=== PATIENT | male | born 1995 | race Caucasian/White ===

== ENCOUNTER 2017-09-17 10:11 | Day surgery (SDC) | payer OTHER ==
--- NOTE | 2017-09-03 10:12 | RADIOLOGY REPORT (SQ) ---
EXAM DESCRIPTION: CHEST PA/LATERAL COMPLETED DATE/TIME: 09/03/2017 9:25 am REASON FOR STUDY: PRE-OP COMPARISON: None. NUMBER OF VIEWS: Two view. TECHNIQUE: Frontal and lateral radiographic views of the chest acquired. LIMITATIONS: None. FINDINGS: LUNGS AND PLEURA: No opacities, masses or pneumothorax. No pleural effusion. MEDIASTINUM AND HILAR STRUCTURES: No masses or contour abnormalities. HEART AND VASCULATURE: Heart normal size. No evidence for failure. BONY STRUCTURES: No acute findings. HARDWARE: None. OTHER: No other significant finding. IMPRESSION: NO SIGNIFICANT RADIOGRAPHIC FINDING IN THE CHEST. TECHNICAL DOCUMENTATION: JOB ID: [id number] [employer]- All Rights Reserved Reading location - IP/workstation name: [email or web address]
[2017-09-03 10:17] LABS: ABSOLUTE EOSINOPHILS # (AUTO) 0.6 10^3/uL (0.0-0.6); ABSOLUTE LYMPHOCYTES (AUTO) 3.4 10^3/uL (0.5-4.7); ABSOLUTE MONOCYTES (AUTO) 0.8 10^3/uL (0.1-1.4); ABSOLUTE NEUT (AUTO) 6.4 10^3/uL (1.7-8.2); BASOPHILS % (AUTO) 0.3 % (0-2); EOSINOPHILS % (AUTO) 5.6 % (0-6); HEMATOCRIT 47.5 % (37.9-51.0); HEMOGLOBIN 16.5 g/dL (13.5-17.0); LYMPHOCYTES % (AUTO) 30.1 % (13-45); MEAN CORPUSCULAR HEMOGLOBIN 30.8 pg (27.0-33.4); MEAN CORPUSCULAR HGB CONC 34.7 g/dL (32.0-36.0); MEAN CORPUSCULAR VOLUME 89 fl (80-97); MONOCYTES % (AUTO) 7.1 % (3-13); PLATELET COUNT 252 10^3/uL (150-450); RED BLOOD COUNT 5.34 10^6/uL (4.35-5.55); RED CELL DISTRIBUTION WIDTH 13.1 % (11.5-14.0); SEGMENTED NEUTROPHILS % (AUTO) 56.9 % (42-78); TOTAL CELLS COUNTED % (AUTO) 100 %; WHITE BLOOD COUNT 11.3 10^3/uL (4.0-10.5)
[2017-09-03 10:19] LABS: AMORPHOUS SEDIMENT,URINE 1+ /HPF; APPEARANCE,URINE CLOUDY; BILIRUBIN,URINE NEGATIVE (NEGATIVE); COLOR,URINE YELLOW; GLUCOSE, URINE NEGATIVE (NEGATIVE); KETONES,URINE NEGATIVE (NEGATIVE); LEUKOCYTE ESTERASE,URINE NEGATIVE (NEGATIVE); NITRITE,URINE NEGATIVE (NEGATIVE); PROTEIN,URINE NEGATIVE (NEGATIVE); URINE SPECIFIC GRAVITY 1.019; UROBILINOGEN,URINE NEGATIVE mg/dL (<2.0)
[2017-09-03 10:36] LABS: ANION GAP 11 (5-19); BLOOD UREA NITROGEN 14 mg/dL (7-20); CALCIUM 9.7 mg/dL (8.4-10.2); CARBON DIOXIDE 30 mmol/L (22-30); CHLORIDE 103 mmol/L (98-107); GLUCOSE 89 mg/dL (75-110); POTASSIUM 4.4 mmol/L (3.6-5.0); SODIUM 144.3 mmol/L (137-145)
--- NOTE | 2017-09-03 12:36 | EKG REPORT ---
SEVERITY:- ABNORMAL ECG - SINUS RHYTHM PROBABLE LEFT VENTRICULAR HYPERTROPHY : Confirmed by: Luis Enrique Corbin MD 03-Sep-2017 12:34:51
[~2017-09-17 10:11] MED LIST: ACETAMINOPHEN 100 ML IV ONE; BUPIVACAINE HCL 0.5 % INJ/PF 30 ML SDV ONE; CEFAZOLIN SODIUM 2 GM in DEXTROSE 5%-WATER 100 ML IV PRN; DEXAMETHASONE SOD PHOSPHATE INJ 4 MG/1 ML VIAL ONE; FENTANYL CITRATE INJ/PF 100 MCG/2 ML AMPUL ONE; LACTATED RINGERS 1000 ML IV PRN; LIDOCAINE 0.5% INJ-PF (5 MG/ML) 50 ML SDV SUBCUT PRN; LIDOCAINE 2% INJ-PF (20 MG/ML) 10 ML AMPUL ONE; MIDAZOLAM 2 MG/2 ML INJ ONE; ONDANSETRON HCL INJ/PF 4 MG/2 ML SDV ONE; PROPOFOL INJ 200 MG/20 ML VIAL IV ONE; SUCCINYLCHOLINE CHLORIDE INJ 200 MG/10 ML VIAL ONE
[2017-09-17] MEDS ORDERED: MORPHINE SULFATE 10 MG/ML INJ IV PRN ×2 (10:37→13:38)
[2017-09-17] MEDS ORDERED: PROMETHAZINE HCL INJ 25 MG/1 ML VIAL IV PRN ×2 (10:37)
[2017-09-17] MEDS ORDERED: FENTANYL CITRATE INJ/PF 100 MCG/2 ML AMPUL IV PRN ×3 (10:37)
[2017-09-17] MEDS ORDERED: MEPERIDINE HCL/PF INJ 25 MG/1 ML DISP.SYRIN IV PRN (10:37)
[2017-09-17] MEDS ORDERED: ONDANSETRON HCL INJ/PF 4 MG/2 ML SDV IV PRN ×2 (10:37→13:38)
[2017-09-17] MEDS ORDERED: DIPHENHYDRAMINE HCL 50 MG/ML VIAL IV PRN (10:37)
[2017-09-17] MEDS ORDERED: FAMOTIDINE INJ/PF 20 MG/2 ML SDV IV ONE (10:39)
[2017-09-17] MEDS ORDERED: ALBUTEROL SULFATE 0.083% NEB 2.5 MG/3 ML AMPUL NEB ONE (10:42)
--- NOTE | 2017-09-17 13:36 | Operative Report ---
Operative Report DATE OF SURGERY: 09/17/17 PREOPERATIVE DIAGNOSIS: Right wrist partial scapholunate ligament tear POSTOPERATIVE DIAGNOSIS: Right wrist complete scapholunate ligament tear. OPERATION: Right wrist surgical arthroscopy with debridement. Right wrist scapholunate ligament repair SURGEON: KWAME SHIPLEY ANESTHESIA: GA COMPLICATIONS: None ESTIMATED BLOOD LOSS: Minimal PROCEDURE: Indication for above procedure: 22-year-old male who sustained injury to his right wrist. Patient had attempted conservative management including activity modification injections and splinting without resolution of his symptoms. At that point decision was made to proceed with operative intervention. MRI revealed partial ligament tear. Thus decision was made to proceed with arthroscopy with possible open repair pending intraoperative findings. Risks and benefits were explained to the patient patient verbalized understanding consented for the procedure. Procedure In Detail: Patient was seen and evaluated in the preoperative holding area. The RIGHT upper extremity was initialized and marked. Patient received 2g of Ancef IV for bacterial prophylaxis. Patient was taken back to the operative room where transferred to the operative table and placed under general anesthesia. Once they were adequately anesthetized a nonsterile tourniquet was placed on the upper extremity. A surgical team debriefing was performed ensuring all instrumentation was available, the surgical procedure was discussed with possible concerns reviewed. The upper extremity was prepped with chlorhexidine and alcohol and draped in a sterile fashion. A timeout was done identifying correct patient, procedure and extremity everyone in attendance agree with this and verbalized no concerns. [facility] with 15 pounds of traction. The extremity was exsanguinated the tourniquet was inflated to 250 mmHg. A 3-4 portal was established and arthroscope introduced into the radiocarpal joint. Introduction of the radiocarpal joint demonstrate no evidence of radiocarpal degenerative changes however there was evidence of significant scapholunate ligament disruption. There was a positive drive-through sign noted at the scapholunate interval. A 4-5 portal was established along with a R -U portal. Inspection of the TFCC demonstrated no evidence of TFCC disruption normal trampoline effect with probing of the TFCC. There was some fraying dorsally which was debrided with a full-radius resector but no full-thickness tear. A midcarpal radial and midcarpal ulnar portal was then established and arthroscope introduced. Introduction within the midcarpal joint demonstrated drive-through sign at the scapholunate interval with full-thickness scapholunate ligament tear. There was no evidence of disruption at the lunotriquetral interval. This area was debrided but given the full-thickness nature decision was made to proceed with open operative intervention. Longitudinal skin incision was made just ulnar to Kyle's tubercle. Blunt dissection was performed and the superficial radial nerve was identified and retracted. I then elevated the fourth and third compartments exposing the capsule of the wrist. A T-shaped capsulotomy was then made. Inspection of the scapholunate interval demonstrated complete disruption of the scapholunate ligament from the scaphoid insertion. I then debrided the interval between the scaphoid and lunate and under C-arm fluoroscopy and direct visualization reduce the scapholunate ligament interval. A small stab incision was made just distal to the radial styloid, blunt dissection was performed and the drill guide was placed to protect the surrounding soft tissues and superficial radial nerve and 2x 0.045 K wires were placed along the scapholunate interval. A third 0.045 K wire was placed along the scaphoid capitate interval. The pins were then cut below the skin. I then turned my attention to repair the scapholunate ligament. A Arthrex micro anchor was placed within the scaphoid. Remanent of the scapholunate ligament and a portion of the DIC was secured to the scaphoid with a Trevor-Danilo suture. The capsule was then closed with interrupted remaining FiberWire suture. The wound was copiously irrigated with normal saline. Any peripheral veins were coagulated with bipolar cautery. Subcutaneous tissues were closed with interrupted 3-0 Vicryl suture. Skin was closed with 4-0 nylon suture. 20 cc of 0.5% Marcaine without epinephrine was injected for postoperative pain control. Patient was placed in a well-padded dorsal blocking splint with the wrist in neutral position. Sponge counts, instrument counts, needle counts counts were correct. Patient was then awoken from anesthesia. Transferred from the operating room table to the operating room stretcher. There was no intraoperative complications patient tolerated procedure well stable to PACU. Postoperative plan: Patient will follow-up the office in 2 weeks at which point we will obtain radiographs and patient will be placed in a short arm cast. Plan will be continuing short arm cast and K wires for 8 weeks.
[2017-09-17] MEDS ORDERED: OXYCODONE-ACETAMINOPHEN 5-325 MG TABLET PO PRN (13:38)
--- NOTE | 2017-09-17 13:38 | Discharge Summary ---
Discharge Summary (SDC) - Discharge Final Diagnosis: Scapholunate ligament tear Date of Surgery: 09/17/17 Discharge Date: 09/17/17 Condition: Good Treatment or Instructions: Schedule Follow Up w/ Dr. Toro Muro @ [facility] to be seen in 10-14 days or as scheduled [place]: [place]: [place]: Ice and elevate Keep splint clean/dry/intact. If your fingers become numb please unwrap the Parveen wrap but leave the splint in place, if the sensation does not return within 30 minutes please return to the emergency department. May begin finger range of motion attempting to make full fist. Please use ibuprofen (Motrin or Advil) 600-800 mg every 8 hours as needed for pain or fever DO NOT TAKE w/ TORADOL may use once TORADOL complete. You may also use acetaminophen (Tylenol) 1000 mg every 4-6 hours as needed for pain or fever. Please be aware that many medications contain acetaminophen, do not exceed a total of 1000 mg of acetaminophen every 6 hours. If ibuprofen and acetaminophen are not sufficient for your pain you may take the Percocet/Ancram. Please be aware that the Percocet/Ancram does contain Tylenol. Stool softener of choice when on pain medication. Prescriptions: Ketorolac Tromethamine [Toradol 10 mg Tablet] 10 mg PO Q8HP PRN #10 tablet PRN Reason: Oxycodone HCl/Acetaminophen [Percocet 5-325 mg Tablet] 1 - 2 tab PO ASDIR PRN # 35 tablet PRN Reason: Discharge Diet: As Tolerated Discharge Activity: No Lifting Over 10 Pounds, No Lifting/Push/Pulling Report the Following to Your Physician Immediately: Fever over 101 Degrees, Unusual Bleeding, Redness, Swelling, Warmth, Increased Soreness
[2017-09-17] MEDS ORDERED: KETOROLAC TROMETHAMINE INJ/PF 30 MG/1 ML SDV ONE (14:29)
--- NOTE | 2017-09-17 15:10 | RADIOLOGY REPORT (SQ) ---
EXAM DESCRIPTION: WRIST RIGHT 2 VIEWS; NO CHG FLUORO COMPLETED DATE/TIME: 09/17/2017 1:57 pm REASON FOR STUDY: RT WRIST ARTHROSCOPY S63.501A UNSPECIFIED SPRAIN OF RIGHT WRIST, INITIAL ENCOUNTE COMPARISON: None. FLUOROSCOPY TIME: 42 seconds 6 digital C-arm images saved to PACS. TECHNIQUE: Intra-operative images acquired during surgical procedure to evaluate progress. NUMBER OF IMAGES: 6 digital C-arm images saved to pacs LIMITATIONS: None. FINDINGS: Intra procedural imaging and fluoro during K-wire placement and right wrist arthroscopy. 3 K-wires stabilize a scaphoid fracture. Please see the operative report for further details IMPRESSION: Intra procedural imaging and fluoro COMMENT: Quality ID 145: Final reports for procedures using fluoroscopy that document radiation exp osure indices, or exposure time and number of fluorographic images (if radiation exposure indices are not available) Please consult full operative report of the attending physician for description of the procedure. TECHNICAL DOCUMENTATION: JOB ID: [id number] [employer]- All Rights Reserved Reading location - IP/workstation name: [email or web address]
--- NOTE | 2017-09-17 15:10 | RADIOLOGY REPORT (SQ) ---
EXAM DESCRIPTION: WRIST RIGHT 2 VIEWS; NO CHG FLUORO COMPLETED DATE/TIME: 09/17/2017 1:57 pm REASON FOR STUDY: RT WRIST ARTHROSCOPY S63.501A UNSPECIFIED SPRAIN OF RIGHT WRIST, INITIAL ENCOUNTE COMPARISON: None. FLUOROSCOPY TIME: 42 seconds 6 digital C-arm images saved to PACS. TECHNIQUE: Intra-operative images acquired during surgical procedure to evaluate progress. NUMBER OF IMAGES: 6 digital C-arm images saved to pacs LIMITATIONS: None. FINDINGS: Intra procedural imaging and fluoro during K-wire placement and right wrist arthroscopy. 3 K-wires stabilize a scaphoid fracture. Please see the operative report for further details IMPRESSION: Intra procedural imaging and fluoro COMMENT: Quality ID 145: Final reports for procedures using fluoroscopy that document radiation exp osure indices, or exposure time and number of fluorographic images (if radiation exposure indices are not available) Please consult full operative report of the attending physician for description of the procedure. TECHNICAL DOCUMENTATION: JOB ID: [id number] [employer]- All Rights Reserved Reading location - IP/workstation name: [email or web address]
[2017-09-17 16:45] VITALS: BP 123/76
== END 2017-09-17 15:55 | disposition home or self-care (01) ==
LOC: OROUT 10:11
PROVIDERS: ATTEND Orthopaedic Surgery
DX: S63.591A Other specified sprain of right wrist, initial encounter (principal); X58.XXXA Exposure to other specified factors, initial encounter; M25.531 Pain in right wrist; F17.210 Nicotine dependence, cigarettes, uncomplicated; Z01.818 Encounter for other preprocedural examination
CPT/HCPCS: 93005; 36415; 85025; 80048; 81001; 71046; 73100; 93010; 29846; C1769; C1713; J2250; J3490 ×2; J0690; J1100; J3010; J1885; J0330; J2405; J2704; S0028; J0131; 01830

== ENCOUNTER 2017-11-22 05:32 | Day surgery (SDC) | payer OTHER ==
[~2017-11-22 05:32] MED LIST changes: -ACETAMINOPHEN 100 ML IV ONE; -BUPIVACAINE HCL 0.5 % INJ/PF 30 ML SDV ONE; -CEFAZOLIN SODIUM 2 GM in DEXTROSE 5%-WATER 100 ML IV PRN; -DEXAMETHASONE SOD PHOSPHATE INJ 4 MG/1 ML VIAL ONE; -FENTANYL CITRATE INJ/PF 100 MCG/2 ML AMPUL ONE; -LIDOCAINE 2% INJ-PF (20 MG/ML) 10 ML AMPUL ONE; -MIDAZOLAM 2 MG/2 ML INJ ONE; -ONDANSETRON HCL INJ/PF 4 MG/2 ML SDV ONE; -PROPOFOL INJ 200 MG/20 ML VIAL IV ONE; -SUCCINYLCHOLINE CHLORIDE INJ 200 MG/10 ML VIAL ONE
[2017-11-22] MEDS ORDERED: ALBUTEROL SULFATE 0.083% NEB 2.5 MG/3 ML AMPUL NEB ONE (07:06)
[2017-11-22] MEDS ORDERED: LIDOCAINE 1% INJ-PF (10 MG/ML) 30 ML SDV ONE (07:11)
[2017-11-22] MEDS ORDERED: HYDROMORPHONE HCL INJ/PF 2 MG/ML AMPULE ONE (07:13)
[2017-11-22] MEDS ORDERED: LIDOCAINE 2% INJ-PF (20 MG/ML) 10 ML AMPUL ONE (07:13)
[2017-11-22] MEDS ORDERED: ACETAMINOPHEN 1,000 MG/100 ML RTUPB IV ONE (07:14)
[2017-11-22] MEDS ORDERED: MIDAZOLAM 2 MG/2 ML INJ ONE (07:14)
[2017-11-22] MEDS ORDERED: PROPOFOL INJ 200 MG/20 ML VIAL IV ONE (07:14)
[2017-11-22] MEDS ORDERED: CEFAZOLIN 2 GM/D5W RTU 2 GM/50 ML RTUPB IV ONE (07:30)
[2017-11-22] MEDS ORDERED: FENTANYL CITRATE INJ/PF 100 MCG/2 ML AMPUL IV PRN ×4 (07:39→07:50)
[2017-11-22] MEDS ORDERED: MEPERIDINE HCL/PF INJ 25 MG/1 ML DISP.SYRIN IV PRN (07:39)
[2017-11-22] MEDS ORDERED: ONDANSETRON HCL INJ/PF 4 MG/2 ML SDV IV PRN (07:39)
[2017-11-22] MEDS ORDERED: DIPHENHYDRAMINE HCL 50 MG/ML VIAL IV PRN (07:39)
[2017-11-22] MEDS ORDERED: PROMETHAZINE HCL INJ 25 MG/1 ML VIAL IV PRN ×2 (07:39)
[2017-11-22] MEDS ORDERED: HYDROCODONE/ACETAMINOPHEN 5-325 MG TABLET PO PRN (07:50)
--- NOTE | 2017-11-22 07:51 | Discharge Summary ---
Discharge Summary (SDC) - Discharge Final Diagnosis: Retained hardware right wrist Date of Surgery: 11/22/17 Discharge Date: 11/22/17 Condition: Good Treatment or Instructions: Schedule Follow Up w/ Dr. Toro Muro @ [facility] to be seen in 10-14 days or as scheduled [place]: [place]: [place]: May remove dressing on postop day #3, keep incision covered and dry. Ice and elevate May begin finger range of motion attempting to make full fist. Stool softener of choice when on pain medication. Prescriptions: Clindamycin HCl [Cleocin HCl] 300 mg PO TID #15 capsule Hydrocodone/Acetaminophen [Bicknell 5-325 mg Tablet] 1 tab PO Q6 #20 tablet Discharge Diet: As Tolerated Respiratory Treatments at Home: Deep Breathing/Coughing Discharge Activity: No Lifting Over 10 Pounds, No Lifting/Push/Pulling, Slowly Increase Activity Report the Following to Your Physician Immediately: Fever over 101 Degrees, Unusual Bleeding, Redness, Swelling, Warmth, Increased Soreness, Drainage-Foul Smelling
--- NOTE | 2017-11-22 07:52 | Operative Report ---
Operative Report DATE OF SURGERY: 11/22/17 PREOPERATIVE DIAGNOSIS: Painful retained hardware right wrist POSTOPERATIVE DIAGNOSIS: Same OPERATION: Removal of deep hardware right wrist status post scapholunate ligament repair SURGEON: KWAME SHIPLEY ANESTHESIA: LMAC COMPLICATIONS: None ESTIMATED BLOOD LOSS: Minimal PROCEDURE: Indication for above procedure: 22-year-old male who underwent scapholunate ligament repair with intercarpal pinning. Patient had the pins for appropriate bedtime and thus in the office we attempted removal of the hardware under local anesthesia unfortunately was unsuccessful thus decision was made to proceed with operative intervention. Risks and benefits were explained patient verbalized understanding consented for the procedure. Procedure In Detail: Patient was seen and evaluated in the preoperative holding area. The RIGHT upper extremity was initialized and marked. Patient received Ancef IV for bacterial prophylaxis. Patient was taken back to the operative room where transferred operative table. Patient was then placed under MAC anesthesia. Once adequately anesthetized, a nonsterile tourniquet was placed on the upper extremity. A surgical team debriefing was performed ensuring all instrumentation was available, the surgical procedure was discussed with possible concerns reviewed. Skin was prepped with alcohol and 10cc of 1% lidocaine without epinephrine was injected locally. The upper extremity was prepped with Betadine and draped in a sterile fashion. A timeout was done identifying correct patient, procedure and extremity everyone in attendance agree with this and verbalized no concerns.The extremity was then exsanguinated the tourniquet was inflated to 250 mmHg. Skin incision was made over the retained hardware at the radial aspect of the wrist. Blunt dissection was performed. Branches the superficial radial nerve were identified and retracted. No evidence of purulence there evidence of serosanguineous drainage. Branches of the superficial nerves were retracted and K wires were then isolated and successfully removed. Under C-arm fluoroscopy examination under anesthesia was performed. There was no evidence of scapholunate widening with radial and ulnar deviation. Normal scapholunate angle on lateral view. The wound was then copiously irrigated with normal saline. Skin was closed with interrupted 4-0 nylon sutures in a soft dressing placed. Sponge counts, instrument counts, needle counts counts were correct. Patient was then awoken from anesthesia. Transferred from the operating room table to the operating room stretcher. There was no intraoperative complications patient tolerated procedure well stable to PACU. Postoperative plan: Patient will follow-up in 2 weeks for wound check. He will begin occupational therapy immediately.
--- NOTE | 2017-11-22 08:31 | RADIOLOGY REPORT (SQ) ---
EXAM DESCRIPTION: NO CHG FLUORO; WRIST RIGHT 2 VIEWS COMPLETED DATE/TIME: 11/22/2017 8:16 am REASON FOR STUDY: HARDWARE REMOVAL OF THE RIGHT WRIST S63.391D TRAUMATIC RUPTURE OF OTH LIGAMENT OF RIGHT WRIST, S COMPARISON: 09/17/2017 FLUOROSCOPY TIME: 8 seconds 4 images saved to PACS. TECHNIQUE: Intra-operative images acquired during surgical procedure to evaluate progress. NUMBER OF IMAGES: 4 LIMITATIONS: None. FINDINGS: Hardware removal. No significant finding in the right wrist. IMPRESSION: IMAGE(S) OBTAINED DURING PROCEDURE. COMMENT: Quality ID 145: Final reports for procedures using fluoroscopy that document radiation exp osure indices, or exposure time and number of fluorographic images (if radiation exposure indices are not available) Please consult full operative report of the attending physician for description of the procedure. TECHNICAL DOCUMENTATION: JOB ID: [id number] [employer]- All Rights Reserved Reading location - IP/workstation name: [email or web address]
--- NOTE | 2017-11-22 08:31 | RADIOLOGY REPORT (SQ) ---
EXAM DESCRIPTION: NO CHG FLUORO; WRIST RIGHT 2 VIEWS COMPLETED DATE/TIME: 11/22/2017 8:16 am REASON FOR STUDY: HARDWARE REMOVAL OF THE RIGHT WRIST S63.391D TRAUMATIC RUPTURE OF OTH LIGAMENT OF RIGHT WRIST, S COMPARISON: 09/17/2017 FLUOROSCOPY TIME: 8 seconds 4 images saved to PACS. TECHNIQUE: Intra-operative images acquired during surgical procedure to evaluate progress. NUMBER OF IMAGES: 4 LIMITATIONS: None. FINDINGS: Hardware removal. No significant finding in the right wrist. IMPRESSION: IMAGE(S) OBTAINED DURING PROCEDURE. COMMENT: Quality ID [id number]: Final reports for procedures using fluoroscopy that document radiation exp osure indices, or exposure time and number of fluorographic images (if radiation exposure indices are not available) Please consult full operative report of the attending physician for description of the procedure. TECHNICAL DOCUMENTATION: JOB ID: [id number] [employer]- All Rights Reserved Reading location - IP/workstation name: [email or web address]
[2017-11-22 09:50] VITALS: BP 135/88
== END 2017-11-22 09:45 | disposition home or self-care (01) ==
LOC: OROUT 05:32
PROVIDERS: ATTEND Orthopaedic Surgery
DX: S63.391D Traumatic rupture of other ligament of right wrist, subsequent encounter (principal); X58.XXXD Exposure to other specified factors, subsequent encounter; J45.909 Unspecified asthma, uncomplicated; Z79.899 Other long term (current) drug therapy; Z79.51 Long term (current) use of inhaled steroids
CPT/HCPCS: 73100; 20680; J2250; J3490 ×2; J1170; J2704; J0690; J0131; 01830